=== PATIENT | male | born 1950 | race Caucasian/White ===

== ENCOUNTER 2022-02-17 08:30 | Outpatient (CLI) | payer MEDICARE, OTHER, SELFPAY ==
--- NOTE | ~2022-02-17 | CT_ITS ---
EXAMINATION: CT diagnostic chest wo con DATE: 02/17/2022 08:48 INDICATION: Lung nodule TECHNIQUE: Computed tomography (CT) of the chest was performed without intravenous contrast. Automate d exposure control and iterative reconstruction technique were employed. Exam dose: 518.29 mGy-cm to kevin exam DLP. COMPARISON: None FINDINGS: There is mild discoid atelectasis or scarring in each of the lower lobes. 5 mm left lower lobe nodule. 5 mm right lower lobe nodule. No pulmonary infiltrate or consolidation or pulmonary mass lesion is noted otherwise. In the absence of any significant risk factors for lung cancer such as smoking or radon exposure, etc ., recommend [address] chest follow up. If there are risk factors, consider [address] c hest. No hilar or mediastinal mass lesion or lymphadenopathy. Normal heart size. No pericardial or pleura l effusion. Normal morphology of the adrenal glands. Status post cholecystectomy. Degenerative spurring of the thoracic spine. No suspicious osteolytic or osteoblastic lesions. IMPRESSION: 5 mm nodule in each lower lobe; consider [address] thorax follow up depending on risk factors Mild discoid atelectasis or scarring in each lower lobe Reviewed, dictated and finalized at [facility]. Reviewed, dictated and finalized at [facility]. IMPRESSION: 5 mm nodule in each lower lobe; consider [address] thorax f ollow up depending on risk factors Mild discoid atelectasis or scarring in each lower lobe
== END 2022-02-17 08:31 | disposition home or self-care (01) ==
PROVIDERS: PCP Family Medicine; Visit Provider Nurse Practitioner Family
DX: R91.1 Solitary pulmonary nodule (principal); R91.8 Other nonspecific abnormal finding of lung field
CPT/HCPCS: 71250

== ENCOUNTER 2022-12-27 09:24 | Outpatient (CLI) | payer MEDICARE, OTHER, SELFPAY ==
--- NOTE | ~2022-12-27 | CT_ITS ---
CT Scan of the Chest without Contrast: Clinical Indication: Pulmonary nodule Technique: Contiguous sections were acquired throughout the chest without intravenous contrast. Dose reduction technique was used on this scan by utilizing automated exposure control and iterative recon struction technique. The dose-length product (DLP) was 232.08 mGy-cm. COMPARISON: 02/17/2022 Findings: There is no evidence of any significant mediastinal, hilar or axillary lymphadenopathy. The mediastin al soft tissues appear normal. There is no evidence of pleural or pericardial effusion. Stable focal scarring in 3 mm adjacent nodule in the right lower lobe. Stable 5 mm left lower lobe pu lmonary nodule (axial image 76).. Images through the upper abdomen reveal no abnormalities. Impression: Stable subcentimeter pulmonary nodules, as above. Reviewed, dictated and finalized at location . Impression: Stable subcentimeter pulmonary nodules, as above.
--- NOTE | 2022-12-27 09:32 | ECHO_ITS ---
Patient Info Name: Zhou Goncalves Age: 72 years : 1950 Gender: Male Ht: 69 in Wt: 225 lbs BSA: 2.26 m2 HR: 64 bpm BP: 131 / 90 mmHg Technical Quality: Good Exam Date: 12/27/2022 9:52 AM Exam Location: [facility] Patient Status: Outpatient Admit Date: 12/27/2022 Staff Ordering Physician: Deidre Jackson PAC Alteration Worker: Maria Guadalupe Head RDCS Attending Provider: Deidre Jackson PAC Referring Physician: Manuel FIGUEROA; Exam Type: CA echo doppler color flow Study Info Indications - Other Ill-Defined Heart Disease Complete two-dimensional, color flow and Doppler transthoracic echocardiogram is performed. Summary 1. Complete two-dimensional, color flow and Doppler transthoracic echocardiogram is performed. 2. Left ventricular chamber dimension is normal. 3. Left ventricular systolic function is normal, estimated at 60-65%. 4. There is mild concentric increased left ventricular wall thickness. 5. The left ventricular diastolic function is grade I diastolic dysfunction. 6. E/e' 6 is not elevated. 7. There is mild aortic valve sclerosis. 8. There is mild aortic valve regurgitation. 9. There is trace pulmonic regurgitation. 10. The aortic root size at the sinus of Valsalva is mildly dilated at 4.4 cm. Left Ventricle E/e' 6 is not elevated. Left ventricular chamber dimension is normal. Left ventricular systolic function is normal, estimated at 60-65%. There is mild concentric increased left ventricular wall thickness. The left ventricular diastolic function is grade I diastolic dysfunction. Right Ventricle Right ventricular chamber dimension is normal. Right ventricular systolic function is normal. Left Atria Left atrial chamber dimension is normal. Right Atria Right atrial chamber dimension is normal. Aortic Valve The aortic valve is trileaflet. There is mild aortic valve sclerosis. There is no aortic valve stenosis. There is mild aortic valve regurgitation. Pulmonic Valve There is trace pulmonic regurgitation. Mitral Valve There is no mitral valve stenosis. There is no mitral valve regurgitation. Tricuspid Valve There is no tricuspid valve regurgitation. Pericardium/Pleural There is no pericardial effusion. Inferior Vena Cava Normal inferior vena cava with >50% collapse upon inspiration consistent with normal right atrial pressure, 5 mmHg. Aorta The aortic root size at the sinus of Valsalva is mildly dilated at 4.4 cm. Left Ventricular Outflow Tract Name Value Normal LVOT 2D LVOT Diameter 2.3 cm LVOT Doppler LVOT Peak Gradient 4 mmHg LVOT Mean Gradient 2 mmHg LVOT VTI 23 cm LVOT VTI/AV VTI Ratio 0.8 LVOT Stroke Volume 95 ml LVOT CO 5.3 l/min LVOT CI 2.3 l/min/m2 Pulmonic Valve Name Value Normal RVOT Doppler
== END 2022-12-27 09:25 | disposition home or self-care (01) ==
LOC: ANHCARD 09:25
PROVIDERS: PCP Family Medicine; Visit Provider Physician Assistant Medical
DX: R91.8 Other nonspecific abnormal finding of lung field (principal); I35.1 Nonrheumatic aortic (valve) insufficiency
CPT/HCPCS: 71250; 93306

== ENCOUNTER 2023-01-20 08:14 | Outpatient (CLI) | payer MEDICARE, OTHER, SELFPAY ==
--- NOTE | 2023-02-09 16:45 | WPDSLEEPSTUD ---
Sleep Study Date of Study: 01/20/23 Ordering Provider: Freddy Driscoll DO Interpreting Physician: Peri Lorenzo MD Sleep Study Type: Split Polysomnogram Height: 1.75 m Weight: 104.326 kg Body Mass Index: 34.0 Neck Circumference (inches): 19 [place]: 9 Reason for Sleep Study Daytime hypersomnia, vivid dreams Sleep History Zhou Goncalves is a 72-year-old male with history of hypertension, hypothyroidism, dyslipidemia, vasovagal episodes, prostate cancer who presented for a split night sleep study ordered by his health and safety advisor for evaluation of daytime hypersomnia. He occasionally has trouble sleeping when he has a cold. He never wakes up gasping for breath during the night. He never has breathing problems at night. He occasionally sweats excessively at night. He frequently falls asleep during the day. He occasionally falls asleep involuntarily but never falls asleep while driving. He never notices his heart pounding or beating irregularly during the night. He never experiences loss of muscle tone with strong emotion. He never feels paralyzed on waking or falling asleep. He constantly experiences vivid dreams upon waking or falling asleep. He does not feel afraid of going to sleep. He constantly has nightmares. He frequently recalls his dreams, and describes his dreams a wild. He frequently has thoughts racing through his mind. He occasionally feels sad or depressed. He occasionally feels anxiety or worry about things. He never notices parts of his body jerk. He rarely feels crawling or aching feelings in his legs. He never feels leg pain at night. He does not grind his teeth during sleep and does not have morning jaw pain. He never feels bothered by pain during the day and is not awakened by pain during the night. He frequently wakes up feeling stiff in the morning, occasionally wakes up feeling sore and achy in the morning. Frequently wakes up with pain in his neck, spine, or joints. Normal bedtime is around 8pm on the weekdays and same on the weekends, sometimes taking 2 hours to go to sleep. He typically gets about 10 to 11 hours of sleep per night. His wake-up time is around 8am on the weekdays and 9am on the weekends. He typically wakes up around 3 to 4 times per night and can be awake for 2 or 3 minutes each. He occasionally watches television before falling asleep. He takes naps in the afternoon or evening. Habits: Never tobacco smoker. Drinks about 4 caffeinated beverages per day. No alcohol or recreational substances. [facility] Past Medical History Medical History BMI 33.0-33.9,adult Dental root implant present Essential (primary) hypertension Hypothyroidism (acquired) Other hyperlipidemia Prostate cancer Family History Family History Father Hypertension Acute myocardial infarction Family history of coronary artery disease Sibling Hypertension COPD (chronic obstructive pulmonary disease) Hospice care patient Mother Family history of malignant neoplasm Social History Social History Smoking status: Never smoker Second hand tobacco smoke exposure: No Alcohol intake: current Substance use: never Substance use type: does not use Lack of Transportation: No Lack of Food: Never True Current Housing: I Have Housing Concerned About Future Housing: No Difficulty Paying Gas/Electric Bills: No Difficulty Paying for Meds: No Currently Unemployed: No Education: Bachelor's Degree Difficulty w/ Childcare or Family Care: No Living arrangements: with family Occupation/Education: retired 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
[2023-02-10 10:26] VITALS: BMI 34.0
== END 2023-01-21 07:23 | disposition home or self-care (01) ==
LOC: ANHCSM 08:14
PROVIDERS: PCP Family Medicine; Visit Provider Internal Medicine Cardiovascular Disease
DX: G47.10 Hypersomnia, unspecified (principal); G47.33 Obstructive sleep apnea (adult) (pediatric)
CPT/HCPCS: 95811

== ENCOUNTER 2024-04-04 07:35 | Outpatient (CLI) | payer MEDICARE, OTHER, SELFPAY ==
--- NOTE | 2024-04-29 20:15 | WPDSLEEPSTUD ---
Sleep Study Date of Study: 04/04/24 Ordering Provider: Star Sibley APRN Interpreting Physician: Peri Lorenzo MD Sleep Study Type: Split Polysomnogram Height: 1.75 m Weight: 104.78 kg Body Mass Index: 34.1 Neck Circumference (inches): 19 [place]: 10 Reason for Sleep Study Hypersomnolence Sleep History Zhou Goncalves is a 74-year-old male with history of hypertension, hypothyroidism, dyslipidemia, vasovagal episodes, prostate cancer who presented for a split night sleep study ordered by his environmental services attendant initially for daytime hypersomnia. He now returns for a repeat split night study, sent by Sleep Medicine, for re-evaluation due to initially not wanting treatment. He did not pursue treatment after the testing as he was hesitant but he changed his mind and would like to pursue CPAP. He reports waking refreshed in the morning w/o headaches. Daytime function is good but does take a catnap daily for 10 minutes daily. Denies any issues nodding off while driving or while talking to people. Gets 8-9hrs of sleep a night. Reports sleep is good. He reports vivid dreaming nightly and can talk in his sleep. Denies sleep paralysis, sleep walking, hypnagogic hallucinations, or cataplexy episodes. Nocturia x1. Does snore at night. Denies RLS symptoms. Caffeine is reduced over the past 3 months. Alcohol use is rare 1drink/month. Never smoker. Denies fam hx of sleep apnea. The following sleep hx is from his prior sleep questionnaire in 2022; occasionally has trouble sleeping when he has a cold. He never wakes up gasping for breath during the night. He never has breathing problems at night. He occasionally sweats excessively at night. He frequently falls asleep during the day. He occasionally falls asleep involuntarily but never falls asleep while driving. He never notices his heart pounding or beating irregularly during the night. He never experiences loss of muscle tone with strong emotion. He never feels paralyzed on waking or falling asleep. He constantly experiences vivid dreams upon waking or falling asleep. He does not feel afraid of going to sleep. He constantly has nightmares. He frequently recalls his dreams, and describes his dreams a wild. He frequently has thoughts racing through his mind. He occasionally feels sad or depressed. He occasionally feels anxiety or worry about things. He never notices parts of his body jerk. He rarely feels crawling or aching feelings in his legs. He never feels leg pain at night. He does not grind his teeth during sleep and does not have morning jaw pain. He never feels bothered by pain during the day and is not awakened by pain during the night. He frequently wakes up feeling stiff in the morning, occasionally wakes up feeling sore and achy in the morning. Frequently wakes up with pain in his neck, spine, or joints. Normal bedtime is around 8pm on the weekdays and same on the weekends, sometimes taking 2 hours to go to sleep. He typically gets about 10 to 11 hours of sleep per night. His wake-up time is around 8am on the weekdays and 9am on the weekends. He typically wakes up around 3 to 4 times per night and can be awake for 2 or 3 minutes each. He occasionally watches television before falling asleep. He takes naps in the afternoon or evening. Habits: Never tobacco smoker. Drinks about 4 caffeinated beverages per day. No alcohol or recreational substances. [facility] Past Medical History Medical History (Updated 04/29/24 @ 20:17 by Peri Lorenzo MD) BMI 33.0-33.9,adult BMI 34.0-34.9,adult Ravi-German breathing Dental root implant present Essential (primary) hypertension Hypothyroidism (acquired) Obstructive sleep apnea Other hyperlipidemia Prostate cancer Family History Family History Father Hypertension Acute myocardial infarction Family history of coronary artery disease Sibling Hypertension COPD (chronic obstructive pulmonary dis
[2024-04-29 20:22] VITALS: BMI 34.1
== END 2024-04-05 07:25 | disposition home or self-care (01) ==
PROVIDERS: PCP Family Medicine; Visit Provider Nurse Practitioner Family
DX: G47.33 Obstructive sleep apnea (adult) (pediatric) (principal)
CPT/HCPCS: 95811

== ENCOUNTER 2025-02-10 13:54 | Outpatient (CLI) | payer MEDICARE, OTHER, SELFPAY ==
--- NOTE | ~2025-02-10 | CT_ITS ---
EXAMINATION: CT brain wo/w con DATE: 02/10/2025 14:40 INDICATION: Dizziness and giddiness TECHNIQUE: Computed tomography (CT) of the head was performed without and with 100 mL Omnipaque-350 i ntravenous contrast. Sagittal and coronal reconstructions were performed. Automated exposure control and iterative reconstruction technique were employed. The dose-length product was 1210.67 mGy-cm. COMPARISON: None FINDINGS: No acute intracranial hemorrhage, acute infarction or abnormal extra axial fluid collection. There is mild scattered white matter hypoattenuation consistent with chronic small vessel ischemic disease. S ymmetric prominence of the sulci consistent with mild age-appropriate diffuse cerebral volume loss. V entricles are normal and symmetric. No mass/mass effect. No abnormally enhancing brain lesions. Cereb ral arteries are unremarkable with no evident significant stenosis, aneurysm or thrombosis.. The orbi ts and mastoid air cells are normal. Mild mucosal thickening in the bilateral ethmoid sinuses. IMPRESSION: 1. No acute intracranial process or abnormally enhancing brain lesions. 2. Age-related changes including mild diffuse volume loss and mild scattered white matter hypoattenua tion consistent with chronic small vessel ischemic disease. Reviewed, dictated and finalized at location [facility]. IMPRESSION: 1. No acute intracranial process or abnormally enhancing brain lesions. 2. Age-related changes including mild diffuse volume loss and mild scattered wh ite matter hypoattenuation consistent with chronic small vessel ischemic diseas e.
[2025-02-10 14:35] LABS: Estimated Glomerular Filt Rate 59
--- NOTE | 2025-02-10 14:58 | ECG_ITS ---
Test Date: 2025-02-10 15:03:28 Measurements Intervals [place] Rate: 63 P: -7 TN: 240 QRS: -57 QRSD: 106 T: 21 QT: 435 QTc: 447 Interpretive Statements SINUS RHYTHM WITH FIRST DEGREE AV BLOCK POOR R WAVE PROGRESSION CONSIDER INFERIOR INFARCT, AGE INDETERMINATE BORDERLINE T WAVE ABNORMALITY- ANTERIOR LEADS BASELINE ARTIFACT- I, III, AVR, AVL, AVF ABNORMAL ECG No previous ECG available for comparison Electronically Signed On 02-10-2025 15:24:24 CDT by Freddy Driscoll D.O.
[2025-02-10 15:30] LABS: Basophils Absolute Auto 0.1 K/mm3 (0.0-0.1); Basophils Percent Auto 1.2 % (0.2-1.2); Eosinophils Absolute Auto 0.5 K/mm3 (0-0.3); Eosinophils Percent Auto 6.2 % (0-4.4); Hematocrit 47.2 % (42.0-52.0); Hemoglobin 15.8 g/dL (14.0-18.0); Immature Granulocyte Absolute 0.02 K/mm3 (0.00-0.031); Immature Granulocyte Percent A 0.2 % (0-0.5); Lymphocytes Absolute Auto 2.11 K/mm3 (0.9-3.2); Lymphocytes Percent Auto 25.6 % (18.3-44.2); Mean Corpuscular HGB Conc 33.5 g/dl (32-36); Mean Corpuscular Hemoglobin 27.5 pg (26-34); Mean Corpuscular Volume 82.2 fl (80-100); Mean Platelet Volume 9.7 fl (7.4-10.4); Monocytes Absolute Auto 0.8 K/mm3 (0.1-0.6); Monocytes Percent Auto 9.4 % (2.6-8.5); Neutrophils Absolute Auto 4.7 K/mm3 (1.3-6.7); Neutrophils Percent Auto 57.4 % (45.5-73.1); Platelet Count Result 278 k/mm3 (150-375); Red Blood Count 5.74 M/mm3 (4.6-6.20); White Blood Count 8.2 K/mm3 (4.5-10.0)
[2025-02-10 15:40] LABS: Alanine Aminotransferase 21 U/L (6-50); Albumin Level 4.2 g/dL (3.5-5.1); Alkaline Phosphatase 67 U/L (38-126); Anion Gap 10 mmol/L (4-12); Aspartate Amino Transferase 26 U/L (17-59); Bilirubin,Total 1.3 mg/dL (0.2-1.3); Blood Urea Nitrogen 11 mg/dL (9-20); Calcium 8.9 mg/dL (8.4-10.2); Carbon Dioxide 30 mmol/L (22-30); Chloride 100 mmol/L (98-107); Cholesterol 120 mg/dL (0-200); Estimated Glomerular Filt Rate > 60; Glucose 93 mg/dL (65-110); HDL Direct 37 mg/dL; Potassium 3.7 mmol/L (3.4-5.0); Sodium 140 mmol/L (137-145); Total Protein 7.6 g/dL (6.3-8.2); Triglycerides 114 mg/dL (<150)
[2025-02-10 15:52] LABS: LDL Cholesterol Direct 57 mg/dL
[2025-02-10 16:12] LABS: Prostate Specific Antigen < 0.1 ng/mL (< OR = 4.0)
== END 2025-02-10 13:55 | disposition home or self-care (01) ==
PROVIDERS: PCP Family Medicine; Visit Provider Physician Assistant Medical
DX: E78.49 Other hyperlipidemia (principal); E78.5 Hyperlipidemia, unspecified; I10 Essential (primary) hypertension; I49.9 Cardiac arrhythmia, unspecified; R41.89 Other symptoms and signs involving cognitive functions and awareness; Z12.5 Encounter for screening for malignant neoplasm of prostate; C61 Malignant neoplasm of prostate; R42 Dizziness and giddiness; R55 Syncope and collapse; R26.81 Unsteadiness on feet
CPT/HCPCS: 36415; 70470; 80053; 80061; 84153; 84443; 85025; 93005; G0103; Q9967